=== PATIENT | female | born 2000 | race Caucasian/White ===

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

== ENCOUNTER 2021-04-09 06:18 | Emergency (ER) | payer OTHER, SELFPAY ==
[2021-04-09 06:20] VITALS: BP 166/75; PULSE 124; RESP 18; TEMP 36.1; O2SAT 100; BMI 54.1
--- NOTE | 2021-04-09 06:27 | EX.ED.DYSGE1 ---
HPI History of Present Illness Chief Complaint: Nausea/Vomiting Narrative Narrative: Patient presents after waking up. She felt something was in the back of her throat. She felt nauseous. Went to the bathroom and vomited once. She said it was darker in color than she would have expected. No bright red blood. History of reflux on pantoprazole. She is not noticed any blood in her stool. This concerned her. She has very mild nausea. No bad food exposures. No diarrhea. No abdominal pain. Current severity is mild. Work me to come to get checked out. [facility] Medical History GERD (gastroesophageal reflux disease) Home Medications biotin 5,000 mcg disintegrating tablet 10,000 mcg PO DAILY 11/06/20 [History Last Taken Unknown] norgestimate 0.25 mg-ethinyl estradiol 35 mcg tablet 1 tab PO DAILY tab 11/06/20 [History Last Taken Unknown] pantoprazole 40 mg tablet,delayed release 40 mg PO DAILY tab 11/06/20 [History Last Taken Unknown] spironolactone 100 mg tablet 100 mg PO DAILY tab 11/06/20 [History Last Taken Unknown] ondansetron HCl [Zofran] 4 mg PO Q8H #10 tab 04/09/21 [Rx Last Taken Unknown] Allergy/AdvReac Type Severity Reaction Status Date / Time amoxicillin Allergy unknown Verified 04/09/21 06:22 Family History Mother Breast cancer Surgical History History of tonsillectomy Social History Smoking Status: Current every day smoker Smokeless tobacco user: other second hand exposure: No alcohol intake: never what type of physical activity do you participate in: weight training frequency: 3-4 times per week duration: 60-90 minutes/day seatbelt use: always ROS ROS ED ROS Narrative ROS General: Denies fever, chills, sweats Eyes: Denies visual changes, blurred vision, double vision ENT: Denies ear pain, rhinorrhea, sore throat Cardiovascular: Denies chest pain, palpitations, heart racing Respiratory: Denies dyspnea, cough, sputum, dyspnea on exertion, orthopnea,PND GI: See HPI : Denies dysuria, hematuria, frequency Musculoskeletal: Denies myalgias, arthralgias, neck pain, back pain Skin: Denies rash, abscess, abrasions Neuro: Denies headache, weakness, paresthesia Psych: Denies depression, anxiety Endo: Denies polyuria, polydipsia, polyphagia Heme: Denies easy bruising, easy bleeding, lymphadenopathy Allergy: Denies hives, swelling EXAM Physical Exam Narrative Exam Narrative: Vital signs reviewed General: Well-nourished well-developed Head: Normocephalic atraumatic Eyes: Pupils equal round and reactive to light extraocular movements intact ENT: TMs clear no hemotympanum no trauma Neck: Nontender full range of motion Cardiovascular: Regular tachycardia with normal rhythm no murmurs normal S1-S2 Respiratory: No distress clear to auscultation bilaterally chest nontender Abdomen: Soft nontender nondistended normal bowel sounds no masses Back: Nontender no CVA tenderness Extremities: Nontender active range of motion ?4 extremities no trauma Skin: Normal color no trauma Neuro alert oriented cranial nerves II through XII intact normal strength sensation reflexes Const Vital Signs: 04/09/21 06:20 Temperature 97 F L Temperature Source Temporal Pulse Rate 124 H Respiratory Rate 18 Blood Pressure 166/75 H Blood Pressure Mean 105 Pulse Ox 100 Oxygen Delivery Method Room Air MDM MDM MDM Narrative Medical decision making narrative: Patient resting comfortably. Given IV fluids and Zofran. CBC obtained. Have a low suspicion for GI bleed. She is young healthy woman with no history of stomach ulcer or signs or symptoms of stomach ulcer. She is not noticed any blood in her stool. I suspect she had 1 dark emesis in color only. Hemoglobin unchanged from November at 10.3. Will be given Zofran for home we will follow-up as an outpatient Lab Data Labs: Laboratory Results - last 24 hr 04/09/21 06:25 WBC 8.0 RBC 4.78 Hgb 10.3 L Hct 35.4 L MCV 74.1 L MCH 21.5 L MCHC 29.1 L RDW Std Deviation 47.8 H RDW Coeff of Su 18.1 H Plt Count 374 MPV 10.8 Immature Gran % (Auto) 0.500 Neut % (Auto) 56.0 Lymph % (Auto) 34.1 [place] % (Auto) 6.5 Eos % (Auto) 2.4 Baso % (Auto) 0.5 Absolute Neuts (auto) 4.5 Absolute Lymphs (auto) 2.73 Nucleated RBC % 0 Discharge Plan Triage Chief Complaint: Nausea/Vomiting ED Provider: Iam Fraser Dx/Rx/DC Orders Clinical Impression: Vomiting Instructions: ED Vomiting (Adult) Prescriptions: New ondansetron HCl [Zofran] 4 mg tablet 4 mg PO Q8H Qty: 10 RF: 0 No Action spironolactone 100 mg tablet 100 mg PO DAILY RF: 0 pantoprazole 40 mg tablet,delayed release (DR/EC) 40 mg PO DAILY RF: 0 norgestimate-ethinyl estradiol 0.25-35 mg-mcg tablet 1 tab PO DAILY RF: 0 biotin 5,000 mcg tablet,disintegrating 10,000 mcg PO DAILY RF: 0 Referrals: [facility] Doctor,Out of [NON-STAFF] - Disposition Disposition: Home, self care
[2021-04-09 06:34] LABS: Absolute Lymphocyte Count 2.73 X10^3/uL (0.83-4.51); Absolute Neutrophil Count 4.5 X10^3/uL (2.0-7.7); Basophil# 0.04 X10^3/uL; Basophil% 0.5 % (0-1); Eosinophil# 0.19 X10^3/uL; Eosinophils% 2.4 % (0-5); Hematocrit 35.4 % (37-47); Hemoglobin 10.3 g/dL (12.0-15.0); Lymphocyte # 2.73 X10^3/ul (0.83-4.51); Lymphocyte % 34.1 % (19-41); Mean Corp Hgb Conc 29.1 g/dL (32-36); Mean Corpuscular Hgb 21.5 pg (27.0-32.0); Mean Corpuscular Volume 74.1 fL (81-99); Mean Platelet Vol. 10.8 fl (6.2-12.0); Monocyte# 0.52 X10^3/uL; Monocyte% 6.5 % (0-10); NRBC Flagged by Analyzer 0 % (0-5); Neutrophil # 4.49 X10^3/uL (2.7-7.7); Platelet Count 374 K/mm3 (150-450); RBC Distribution Width CV 18.1 % (11.6-14.6); RBC Distribution Width SD 47.8 fl (35.1-43.9); Red Blood Count 4.78 M/mm3 (4.2-5.4)
[2021-04-09] MEDS: 0.9% Normal Saline 1,000 ML 1000 ML IV (06:40)
[2021-04-09] MEDS: Ondansetron 4 MG/2 ML Vial IV (06:40)
[2021-04-09 07:11] VITALS: BP 128/69; PULSE 89; RESP 18
== END 2021-04-09 07:58 | disposition home or self-care (01) ==
LOC: ED 06:42
PROVIDERS: Emergency Provider Emergency Medicine
DX: R11.2 Nausea with vomiting, unspecified (principal); K21.9 Gastro-esophageal reflux disease without esophagitis; F17.200 Nicotine dependence, unspecified, uncomplicated; Z79.3 Long term (current) use of hormonal contraceptives; Z79.899 Other long term (current) drug therapy
CPT/HCPCS: 85025; 99284; J7030; A4216; J2405

== ENCOUNTER 2022-05-23 10:54 | Emergency (ER) | payer OTHER, SELFPAY ==
[2022-05-23 10:55] VITALS: BP 140/100; PULSE 90; RESP 18; TEMP 36.6; O2SAT 99; BMI 57.9
--- NOTE | 2022-05-23 11:11 | ED.VIS.GI ---
HPI HPI - GI History of Present Illness Chief Complaint: Abd Pain Detail of Chief Complaint: Lower abdominal pain Informant: patient and spouse/S.O. Abdominal Pain/Flank Pain Onset: Yesterday Context: Sudden Onset Timing: Continuous Quality: Aching Location: RLQ and LLQ Current Severity: Mild Maximum Severity: Moderate Worsened by: Nothing; Not Worsened By Food or Movement Relieved by: Nothing and - (Better if she is supine or her significant other rubs her abdomen) Nausea/Vomiting/Emesis GI Symptom: Positive for Nausea and Vomiting (X1) Onset: Yesterday Quality: Negative for Nonbilious, Blood streaks, Coffee ground or Hematemesis Diarrhea/Melena/Hematochezia Severity: Mild Associated Symptoms Associated Symptoms: Positive for - (Patient endorses decreased urine output); Negative for Dysuria, Frequency, Hematuria or Urgency LMP: Abnormal periods due to PCOS Narrative Narrative: Patient is a 22-year-old woman who was treated with metformin for PCOS. She had issues with the metformin and discontinued the metformin 1 to 2 years ago. She states she is now prediabetic and was started on metformin 3 weeks ago. Diarrhea started 2 weeks ago. She is reporting 3 watery stools per day. She has not noted blood or mucus. There is no individual or family history of ulcerative colitis, Crohn's disease or IBS. Patient has not had an endoscopy i.e. EGD or colonoscopy in the past 5 years. Patient localizes the pain to the right and left lower quadrant. There is no radiation. She denies anorexia. She denies fever or chills. She denies HEENT, cardiac, respiratory symptoms. She denies dysuria, frequency, urgency or hematuria. She does endorse decreased urine output. She denies rash, myalgias or arthralgias. Prior similar symptoms: No Recent Illness/Hospitalization: No PFSH PFS Medical History (Updated 05/23/22 @ 12:[address] Doc Rhoades MD) GERD (gastroesophageal reflux disease) PCOS (polycystic ovarian syndrome) Home Medications biotin 5,000 mcg disintegrating tablet 10,000 mcg PO DAILY 11/06/20 [History Last Taken Unknown] norgestimate 0.25 mg-ethinyl estradiol 35 mcg tablet 1 tab PO DAILY 11/06/20 [History Last Taken Unknown] pantoprazole 40 mg tablet,delayed release 40 mg PO DAILY 11/06/20 [History Last Taken Unknown] spironolactone 100 mg tablet 100 mg PO DAILY 11/06/20 [History Last Taken Unknown] ondansetron HCl 4 mg tablet (Zofran) 4 mg PO Q8H #10 tabs 04/09/21 [Rx Last Taken Unknown] Allergy/AdvReac Type Severity Reaction Status Date / Time amoxicillin Allergy unknown Verified 05/23/22 10:57 Family History Mother Breast cancer Surgical History History of tonsillectomy Social History (Updated 05/23/22 @ 11:[address] Doc Rhoades MD) household members: spouse Smoking Status: Current every day smoker tobacco type: e-cigarettes Smokeless tobacco user: other second hand exposure: No alcohol intake: never substance use type: does not use what type of physical activity do you participate in: weight training frequency: 3-4 times per week duration: 60-90 minutes/day seatbelt use: always ROS ROS ED Constitutional Constitutional ED: Denies chills, fever(s), subjective, sweats or weight loss ENT ENT ED: Reports other Details: Patient endorses dry mouth and thirst. ; Denies ear pain, rhinorrhea or sore throat Cardiovascular Cardiovascular: Denies chest pain, orthopnea, palpitations, paroxysmal nocturnal dyspnea or racing heartbeat Respiratory/Chest Respiratory/Chest: Denies cough, dyspnea, dyspnea on exertion, orthopnea or paroxysmal nocturnal dyspnea Gastrointestinal Gastrointestinal: Reports abdominal pain, diarrhea, nausea and vomiting; Denies constipation or melena Genitourinary Genitourinary ED: Denies dysuria, hematuria or urinary frequency Musculoskeletal Musculoskeletal: Denies arthralgias, back pain, myalgias or neck pain Integumentary Denies abscess or rash Neurologic Neurologic: Denies headache(s), paresthesias or weakness Psychiatric Psychiatric: Denies anxiety, depression or suicidal thoughts Endocrine Endocrinology: Denies polydipsia, polyphagia or polyuria Hematologic/Lymphatic Hematologic/Lymphatic: Denies easy bleeding, easy bruising or lymphadenopathy Allergic/Immunologic Allergic/Immunologic ED: Denies mouth swelling or tongue swelling EXAM Physical Exam Const Vital Signs: 05/23/22 10:55 05/23/22 11:35 Temperature 98 F Temperature Source Temporal Pulse Rate 90 74 Respiratory Rate 18 Blood Pressure 140/100 H 120/85 H Blood Pressure Mean 113 96 Pulse Ox 99 Oxygen Delivery Method Room Air Room Air Positive well nourished, well developed and obese; Negative for cachectic, contractures or unkempt Constitutional Narrative: Patient appears uncomfortable. Affect is flat. General Appearance ED: well developed; Negative for unkempt, cachectic, contractures, NAD or pallor Nutritional Appearance: obese; Negative for cachectic HEENT Reports dry mucous membranes HEENT Narrative: Ears normal. Nares patent. Uvula midline. There is no erythema or exudate. normocephalic and atraumatic Mouth ED: Yes dry mucous membranes Mouth: dry mucous membranes Eyes PERRL and EOMs intact bilaterally General Eye ED: Negative for pale conjunctiva or scleral icterus Resp normal respiratory effort and clear to auscultation bilaterally Cardio regular rate, regular rhythm, S1 normal heart sound, S2 normal heart sound and no murmurs GI non-tender, non-distended and no masses Back/Spine no CVA tenderness Neuro CN's II-XII intact bilaterally and moves all extremities Sensorium / Orientation: alert Psych Appearance: Negative for unkempt Skin no wounds General Skin Exam: Negative for jaundice or pallor Lesions: no lesions Rashes: no rashes MDM MDM MDM Narrative Medical decision making narrative: [place] patient is doing treated. Most like glee because for the diarrhea is the metformin. The metformin will cause most of her GI symptoms. Basic metabolic and was obtained to assess for hypokalemia, renal function. CBC to assess white count differential. Lab Data Attestation: I reviewed the patient's lab results. Lab results narrative: Patient has mild anemia with hemoglobin 10.7. White count differential normal. Patient metabolic panel is unremarkable. UA is negative with no ketones. Labs: Laboratory Results - last 24 hr 05/23/22 05/23/22 05/23/22 11:20 11:30 11:30 WBC 5.4 RBC 4.95 Hgb 10.7 L Hct 37.3 MCV 75.4 L MCH 21.6 L MCHC 28.7 L RDW Std Deviation 53.2 H RDW Coeff of Su 19.9 H Plt Count 301 MPV 11.2 Immature Gran % (Auto) 0.400 Neut % (Auto) 62.2 Lymph % (Auto) 30.2 [place] % (Auto) 4.6 Eos % (Auto) 1.9 Baso % (Auto) 0.7 Absolute Neuts (auto) 3.4 Absolute Lymphs (auto) 1.63 Nucleated RBC % 0 Sodium 140 Potassium 4.3 Chloride 110 H Carbon Dioxide 26.0 Anion Gap 4 L BUN 9 Creatinine 0.87 Estim Creat Clear Calc 99.47 Est GFR (MDRD) Af Amer 106 Est GFR (MDRD) Non-Af 87 BUN/Creatinine Ratio 10.3 Glucose 112 H Calcium 9.0 Urine Color Yellow Urine Clarity Clear Urine pH 6.0 Ur Specific [place] 1.020 Urine Protein Negative Urine Glucose (UA) Normal Urine Ketones Negative Urine Occult Blood Negative Urine Nitrite Negative Urine Bilirubin Negative Urine Urobilinogen Normal Ur Leukocyte Esterase Negative Urine RBC 0 SEEN Urine WBC 0 SEEN Ur Squamous Epith Cells 0-5 SEEN Urine Bacteria 0 SEEN Urine Mucus 0 SEEN Treatment and Re-Evaluation Narrative: Patient was reassessed at 1209 and informed that the cause of her symptoms in all likelihood is due to the metformin since the symptoms she is having are very common no adverse side effects. She was informed that normally it starts to improve after 2 weeks. She was informed that she could talk to her doctor and discontinue or see if it does improve since she had symptoms for 2 weeks. Discharge Plan Triage Chief Complaint: Abd Pain ED Provider: Doc Rhoades Dx/Rx/DC Orders Clinical Impression: Adverse drug reaction, Primary amenorrhea, Diarrhea, Abdominal discomfort, bilateral lower quadrant, History of polycystic ovarian syndrome Instructions: ED Drug Reaction, Other Prescriptions: No Action spironolactone 100 mg tablet 100 mg PO DAILY Label Comments: TAKE 1 TABLET BY MOUTH EVERY DAY pantoprazole 40 mg tablet,delayed release (DR/EC) 40 mg PO DAILY Label Comments: TAKE 1 TABLET ONCE DAILIY, ON AN EMPTY STOMACH. norgestimate-ethinyl estradiol 0.25-35 mg-mcg tablet 1 tab PO DAILY Label Comments: TAKE DIRECTED EVERY DAY biotin 5,000 mcg tablet,disintegrating 10,000 mcg PO DAILY ondansetron HCl [Zofran] 4 mg tablet 4 mg PO Q8H Qty: 10 0RF Primary Care Provider: Chhaya Graham NP Referrals: [facility],Out of [NON-STAFF] - 3-5 Days if not improving Disposition Disposition: Home, Self Care
[2022-05-23] MEDS: Dicyclomine 10 MG Capsule 20 MG PO (11:23)
[2022-05-23] MEDS: 0.9% Normal Saline 1,000 ML 1000 ML IV (11:33)
[2022-05-23 11:35] VITALS: BP 120/85; PULSE 74
[2022-05-23 11:36] LABS: Bacteria 0 SEEN /hpf (None Seen); Mucous, Urine 0 SEEN /hpf (<or=2+); Red Blood Cells-Urine 0 SEEN /hpf (0-5); White Blood Cells 0 SEEN /hpf (0-5)
[2022-05-23 11:37] LABS: Absolute Lymphocyte Count 1.63 X10^3/uL (0.83-4.51); Absolute Neutrophil Count 3.4 X10^3/uL (2.0-7.7); Basophil# 0.04 X10^3/uL; Basophil% 0.7 % (0-1); Eosinophils% 1.9 % (0-5); Hematocrit 37.3 % (37-47); Hemoglobin 10.7 g/dL (12.0-15.0); Lymphocyte # 1.63 X10^3/ul (0.83-4.51); Lymphocyte % 30.2 % (19-41); Mean Corp Hgb Conc 28.7 g/dL (32-36); Mean Corpuscular Hgb 21.6 pg (27.0-32.0); Mean Corpuscular Volume 75.4 fL (81-99); Mean Platelet Vol. 11.2 fl (6.2-12.0); Monocyte# 0.25 X10^3/uL; Monocyte% 4.6 % (0-10); NRBC Flagged by Analyzer 0 % (0-5); Neutrophil # 3.35 X10^3/uL (2.7-7.7); Neutrophil % 62.2 % (47-70); Platelet Count 301 K/mm3 (150-450); RBC Distribution Width CV 19.9 % (11.6-14.6); RBC Distribution Width SD 53.2 fl (35.1-43.9); Red Blood Count 4.95 M/mm3 (4.2-5.4); White Blood Count 5.4 K/mm3 (4.4-11.0)
[2022-05-23 11:38] LABS: Color, Urine Yellow (Yellow); Glucose, Dipstick Normal (Normal); Ketone-Dipstick Negative (Negative); Leukocyte Esterase-Dipstick Negative /ul (Negative); Nitrite-Dipstick Negative (Negative); Occult Blood-Urine Negative /ul (Negative); Protein-Dipstick Negative (Negative); Urine Bilirubin Dipstick Negative (Negative); Urine Clarity Clear (Clear); Urine Urobilinogen Normal (Normal)
[2022-05-23 11:46] LABS: Squamous Epithelial Cells - UA 0-5 SEEN /hpf (5-10)
[2022-05-23 11:51] LABS: Anion Gap 4 (5-15); BUN 9 mg/dL (7-18); BUN/Creat Ratio 10.3 RATIO (10-20); Chloride 110 mmol/L (98-107); Creatinine, Serum 0.87 mg/dL (0.55-1.02); EST Glomerular Filtration Rate 87 mL/min (>60); Est Glom Filt Rate - Afr Amer 106 mL/min (>60); Estimated Creatinine Clearance 99.47 ml/min; Glucose 112 mg/dL (74-106); Potassium 4.3 mmol/L (3.5-5.1); Sodium Level 140 mmol/L (136-145)
[2022-05-23 12:32] VITALS: BP 105/78; PULSE 79
== END 2022-05-23 12:36 | disposition home or self-care (01) ==
PROVIDERS: Emergency Provider Emergency Medicine; PCP Nurse Practitioner Family; Visit Provider Emergency Medicine
DX: T50.905A Adverse effect of unspecified drugs, medicaments and biological substances, initial encounter (principal); N91.0 Primary amenorrhea; R19.7 Diarrhea, unspecified; R10.31 Right lower quadrant pain; R10.32 Left lower quadrant pain; F17.290 Nicotine dependence, other tobacco product, uncomplicated; E66.9 Obesity, unspecified
CPT/HCPCS: 80048; 81001; 85025; 96360; 99285; A4216

== ENCOUNTER 2022-07-05 11:00 | Emergency (ER) | payer OTHER, SELFPAY ==
[2022-07-05 11:02] VITALS: BP 172/123; PULSE 130; RESP 20; TEMP 36.8; O2SAT 99; BMI 55.7
--- NOTE | 2022-07-05 11:14 | EDS_ITS ---
HPI HPI - GI History of Present Illness Chief Complaint: Abd Pain Informant: patient Abdominal Pain/Flank Pain Onset: Days (4) Context: Gradual Onset Timing: Continuous Quality: Aching, Cramping and Sharp Location: RUQ Worsened by: Food and - (deep breathing) Relieved by: Nothing Nausea/Vomiting/Emesis GI Symptom: Positive for Nausea and Vomiting Quality: Positive for Nonbilious; Negative for Blood streaks, Coffee ground or Hematemesis Diarrhea/Melena/Hematochezia GI Symptom: Negative for Diarrhea, Melena or Hematochezia Associated Symptoms Associated Symptoms: Positive for Frequency; Negative for Dysuria or Hematuria Narrative Narrative: Patient presents with abdominal pain that has been getting worse over the last 4 days. Patient states her pain is over the right upper quadrant and radiates around to her back. Patient describes it as aching, sharp, and cramping. Patient states it is worse after eating and with deep breathing. Patient states nothing seems to help with the pain. Patient admits to some nausea and vomiting. Patient admits to some constipation but denies any diarrhea, melena, or hematochezia. Patient admits to some urinary frequency but denies any dysuria or hematuria. Patient states her last menstrual period was approximately a year ago but states she has a history of PCOS and her periods are very irregular. Patient states she was recently started on control to help with her periods and PCOS. [facility] Medical History GERD (gastroesophageal reflux disease) PCOS (polycystic ovarian syndrome) Home Medications biotin 5,000 mcg disintegrating tablet 10,000 mcg PO DAILY 11/06/20 [History Last Taken Unknown] norgestimate 0.25 mg-ethinyl estradiol 35 mcg tablet 1 tab PO DAILY 11/06/20 [History Last Taken Unknown] pantoprazole 40 mg tablet,delayed release 40 mg PO DAILY 11/06/20 [History Last Taken Unknown] spironolactone 100 mg tablet 100 mg PO DAILY 11/06/20 [History Last Taken Unknown] ondansetron HCl 4 mg tablet (Zofran) 4 mg PO Q8H #10 tabs 04/09/21 [Rx Last Taken Unknown] famotidine 20 mg tablet 20 mg PO BID #28 TABLETS 07/05/22 [Rx Last Taken Unknown] Allergy/AdvReac Type Severity Reaction Status Date / Time amoxicillin Allergy unknown Verified 07/05/22 11:02 Family History Mother Breast cancer Surgical History History of tonsillectomy Social History household members: spouse Smoking Status: Current every day smoker tobacco type: e-cigarettes Smokeless tobacco user: other second hand exposure: No alcohol intake: never substance use type: does not use what type of physical activity do you participate in: weight training frequency: 3-4 times per week duration: 60-90 minutes/day seatbelt use: always ROS ROS ED Constitutional Constitutional ED: Denies chills or fever(s) Eyes Eyes: Denies blurry vision or change in vision ENT ENT ED: Denies rhinorrhea or sore throat Cardiovascular Cardiovascular: Denies chest pain or palpitations Respiratory/Chest Respiratory/Chest: Reports cough; Denies dyspnea Gastrointestinal Gastrointestinal: Reports abdominal pain, constipation, nausea and vomiting Genitourinary Genitourinary ED: Denies dysuria or hematuria Musculoskeletal Musculoskeletal: Reports back pain; Denies neck pain Integumentary Denies abscess or rash Neurologic Neurologic: Denies headache(s) or weakness Allergic/Immunologic Allergic/Immunologic ED: Denies mouth swelling or urticaria EXAM Physical Exam Const Vital Signs: 07/05/22 11:02 07/05/22 13:01 Temperature 98.2 F 98.9 F Temperature Source Temporal Temporal Pulse Rate 130 H 78 Respiratory Rate 20 H 16 Blood Pressure 172/123 H 126/86 H Blood Pressure Mean 139 99 Pulse Ox 99 98 Oxygen Delivery Method Room Air Room Air Positive well nourished, well developed and obese General Appearance ED: well developed and NAD Nutritional Appearance: obese HEENT Reports moist mucous membranes Neck supple and no JVD Resp normal respiratory effort and clear to auscultation bilaterally Cardio regular rate, regular rhythm and no murmurs GI normal to inspection, nondistended, normoactive bowel sounds Palpation: soft and tender RUQ; Negative for guarding or rebound tenderness present Extremity normal to inspection General Extremety ED: Negative for edema or tenderness General Extremity: Negative for edema Neuro oriented x3, CN's II-XII intact bilaterally and no sensory deficits noted Sensorium / Orientation: alert Motor Exam: strength 5/5 throughout Psych mental status grossly normal Skin no rashes or lesions noted MDM MDM MDM Narrative Medical decision making narrative: Patient was given IV fluids, morphine, and Zofran here. CBC was within normal limits. Comprehensive metabolic profile was within normal limits. Lipase was normal. Serum hCG was negative. Urinalysis does not show any evidence of urinary tract infection. Right upper quadrant ultrasound was obtained. There is no cholelithiasis or evidence of cholecystitis. There is fatty infiltration of the liver. This was interpreted by the radiologist and reviewed by myself. Patient was advised of her findings. Patient was given a prescription for Prilosec. Patient was instructed to start with a bland diet and advance as tolerated. Patient was instructed to follow-up with her primary care physician in 5 to 7 days. Patient understood and was agreeable with the plan. All questions were answered. Lab Data Attestation: I reviewed the patient's lab results. Labs: Laboratory Results - last 24 hr 07/05/22 07/05/22 07/05/22 11:55 11:55 11:55 WBC 6.9 RBC 4.89 Hgb 11.0 L Hct 37.2 MCV 76.1 L MCH 22.5 L MCHC 29.6 L RDW Std Deviation 51.7 H RDW Coeff of Su 18.8 H Plt Count 334 MPV 10.7 Immature Gran % (Auto) 0.400 Neut % (Auto) 65.7 Lymph % (Auto) 27.3 [place] % (Auto) 4.7 Eos % (Auto) 1.5 Baso % (Auto) 0.4 Absolute Neuts (auto) 4.5 Absolute Lymphs (auto) 1.87 Nucleated RBC % 0 Sodium 139 Potassium 4.3 Chloride 107 Carbon Dioxide 26.0 Anion Gap 6 BUN 9 Creatinine 0.86 Estim Creat Clear Calc 104.38 Est GFR (MDRD) Af Amer 106 Est GFR (MDRD) Non-Af 88 BUN/Creatinine Ratio 10.4 Glucose 110 H Calcium 9.2 Total Bilirubin 0.30 AST 10 L ALT 31 Alkaline Phosphatase 79 Total Protein 7.0 Albumin 3.3 Globulin 3.7 Albumin/Globulin Ratio 0.9 Lipase 53 L Serum , Qual NEGATIVE Urine Color Urine Clarity Urine pH Ur Specific [place] Urine Protein Urine Glucose (UA) Urine Ketones Urine Occult Blood Urine Nitrite Urine Bilirubin Urine Urobilinogen Ur Leukocyte Esterase Urine RBC Urine WBC Ur Squamous Epith Cells Urine Bacteria Urine Mucus 07/05/22 11:55 WBC RBC Hgb Hct MCV MCH MCHC RDW Std Deviation RDW Coeff of Su Plt Count MPV Immature Gran % (Auto) Neut % (Auto) Lymph % (Auto) [place] % (Auto) Eos % (Auto) Baso % (Auto) Absolute Neuts (auto) Absolute Lymphs (auto) Nucleated RBC % Sodium Potassium Chloride Carbon Dioxide Anion Gap BUN Creatinine Estim Creat Clear Calc Est GFR (MDRD) Af Amer Est GFR (MDRD) Non-Af BUN/Creatinine Ratio Glucose Calcium Total Bilirubin AST ALT Alkaline Phosphatase Total Protein Albumin Globulin Albumin/Globulin Ratio Lipase Serum , Qual Urine Color Yellow Urine Clarity Sl. Cloudy Urine pH 7.0 Ur Specific [place] 1.010 Urine Protein Negative Urine Glucose (UA) Normal Urine Ketones Negative Urine Occult Blood Negative Urine Nitrite Negative Urine Bilirubin Negative Urine Urobilinogen Normal Ur Leukocyte Esterase Negative Urine RBC 0 SEEN Urine WBC 0 SEEN Ur Squamous Epith Cells 0-5 SEEN Urine Bacteria RARE Urine Mucus 0 SEEN Radiography Diagnostic Testing: Clinical Impression(s) from Imaging Studies Gallbladder Ultrasound 07/05/22 11:18 IMPRESSION: Fatty infiltration of the liver. Electronically Signed: Martha Castañeda MD at 13:01 EDT , Discharge Plan Triage Chief Complaint: Abd Pain ED Provider: Roque Roman Dx/Rx/DC Orders Clinical Impression: Right upper quadrant abdominal pain, Morbid obesity with BMI of 50.0-59.9, adult Instructions: ED Abdominal Pain Unkn Cause Fem Prescriptions: New famotidine [famotidine] 20 mg tablet 20 mg PO BID Qty: 28 0RF No Action spironolactone 100 mg tablet 100 mg PO DAILY Label Comments: TAKE 1 TABLET BY MOUTH EVERY DAY pantoprazole 40 mg tablet,delayed release (DR/EC) 40 mg PO DAILY Label Comments: TAKE 1 TABLET ONCE DAILIY, ON AN EMPTY STOMACH. norgestimate-ethinyl estradiol 0.25-35 mg-mcg tablet 1 tab PO DAILY Label Comments: TAKE DIRECTED EVERY DAY biotin 5,000 mcg tablet,disintegrating 10,000 mcg PO DAILY ondansetron HCl [Zofran] 4 mg tablet 4 mg PO Q8H Qty: 10 0RF Primary Care Provider: Chhaya Graham NP Referrals: Chhaya Graham SHIPPING AND RECEIVING SPECIALIST, SHIPPING AND RECEIVING SPECIALIST-[facility] [Primary Care Provider] - 5-7 Days Disposition Disposition: Home, Self Care
--- NOTE | 2022-07-05 11:18 | US_ITS ---
STUDY: ABDOMINAL ULTRASOUND - RIGHT UPPER QUADRANT REASON FOR VISIT: Female, 22 years old PAIN TECHNIQUE: Ultrasound evaluation of the right upper quadrant was performed with real-time and static sosa-scale imaging. TECHNICAL QUALITY: Adequate. COMPARISON: CT dated 12/31/2018 FINDINGS: Liver: The liver measures 18.7 cm. There is increased echogenicity consistent with fatty infiltration. The bile ducts are within normal limits. There is hepatic color flow. The direction of portal flow is hepatopetal. There is no demonstrated mass lesion. Gallbladder: Normal distended gallbladder. The gallbladder wall measures 1.6 mm. There is a negative sonographic Del Toro''s sign. There is no pericholecystic fluid. There are no gallstones. Common Bile Duct (C.B.D.): The common bile duct measures 4.5 mm. Pancreas: Normal size of the head, body and tail of the pancreas. There is normal echogenicity of the pancreas. There is no demonstrated pancreatic mass or cyst. Right Kidney: Normal size of the right kidney. The right kidney measures 11.8 cm in length. Normal renal cortex. There is no demonstrated renal mass or cyst. There is no right hydronephrosis. US/Gallbladder IMPRESSION: Fatty infiltration of the liver. Electronically Signed: Martha Castañeda MD at 13:01 EDT ,
[2022-07-05] MEDS: Morphine 4 MG/ML Syringe IV (12:05)
[2022-07-05] MEDS: 0.9% Normal Saline 1,000 ML 1000 ML IV (12:05)
[2022-07-05] MEDS: Ondansetron 4 MG/2 ML Vial IV (12:05)
[2022-07-05 12:19] LABS: Mucous, Urine 0 SEEN /hpf (<or=2+); Red Blood Cells-Urine 0 SEEN /hpf (0-5); White Blood Cells 0 SEEN /hpf (0-5)
[2022-07-05 12:28] LABS: Color, Urine Yellow (Yellow); Glucose, Dipstick Normal (Normal); Ketone-Dipstick Negative (Negative); Leukocyte Esterase-Dipstick Negative /ul (Negative); Nitrite-Dipstick Negative (Negative); Occult Blood-Urine Negative /ul (Negative); Protein-Dipstick Negative (Negative); Urine Bilirubin Dipstick Negative (Negative); Urine Clarity Sl. Cloudy (Clear); Urine Urobilinogen Normal (Normal)
[2022-07-05 12:32] LABS: Internal QC Validated? YES +Cl - CLEAR BKGD; Pregnancy, Serum, hCG Quali. NEGATIVE Negative
[2022-07-05 12:35] LABS: Bacteria RARE /hpf (None Seen); Squamous Epithelial Cells - UA 0-5 SEEN /hpf (5-10)
[2022-07-05 12:43] LABS: ALB/GLOB Ratio 0.9 RATIO (0.9-2.4); AST(SGOT) 10 U/L (15-37); Absolute Lymphocyte Count 1.87 X10^3/uL (0.83-4.51); Absolute Neutrophil Count 4.5 X10^3/uL (2.0-7.7); Alanine Aminotransfer ALT/SGPT 31 U/L (13-56); Albumin, Serum 3.3 g/dL (3.2-5.0); Alkaline Phosphatase 79 U/L (45-117); Anion Gap 6 (5-15); BUN 9 mg/dL (7-18); BUN/Creat Ratio 10.4 RATIO (10-20); Basophil# 0.03 X10^3/uL; Basophil% 0.4 % (0-1); Calcium,Total 9.2 mg/dL (8.5-10.1); Chloride 107 mmol/L (98-107); Creatinine, Serum 0.86 mg/dL (0.55-1.02); EST Glomerular Filtration Rate 88 mL/min (>60); Eosinophils% 1.5 % (0-5); Est Glom Filt Rate - Afr Amer 106 mL/min (>60); Estimated Creatinine Clearance 104.38 ml/min; Globulin 3.7 g/dL (2.2-4.2); Glucose 110 mg/dL (74-106); Hematocrit 37.2 % (37-47); Lipase 53 U/L (73-393); Lymphocyte # 1.87 X10^3/ul (0.83-4.51); Lymphocyte % 27.3 % (19-41); Mean Corp Hgb Conc 29.6 g/dL (32-36); Mean Corpuscular Hgb 22.5 pg (27.0-32.0); Mean Corpuscular Volume 76.1 fL (81-99); Mean Platelet Vol. 10.7 fl (6.2-12.0); Monocyte# 0.32 X10^3/uL; Monocyte% 4.7 % (0-10); NRBC Flagged by Analyzer 0 % (0-5); Neutrophil # 4.51 X10^3/uL (2.7-7.7); Neutrophil % 65.7 % (47-70); Platelet Count 334 K/mm3 (150-450); Potassium 4.3 mmol/L (3.5-5.1); RBC Distribution Width CV 18.8 % (11.6-14.6); RBC Distribution Width SD 51.7 fl (35.1-43.9); Red Blood Count 4.89 M/mm3 (4.2-5.4); Sodium Level 139 mmol/L (136-145); White Blood Count 6.9 K/mm3 (4.4-11.0)
[2022-07-05 13:01] VITALS: BP 126/86; PULSE 78; RESP 16; TEMP 37.2; O2SAT 98
[2022-07-05 13:34] VITALS: BP 134/76; PULSE 89; RESP 18; TEMP 37.2; O2SAT 99
== END 2022-07-05 13:47 | disposition home or self-care (01) ==
PROVIDERS: Emergency Provider Emergency Medicine; PCP Nurse Practitioner Family; Visit Provider Emergency Medicine
DX: R10.11 Right upper quadrant pain (principal); E66.01 Morbid (severe) obesity due to excess calories; Z68.43 Body mass index [BMI] 50.0-59.9, adult; F17.290 Nicotine dependence, other tobacco product, uncomplicated
CPT/HCPCS: 76705; 80053; 81001; 83690; 84703; 85025; 96361; 96374; 96375; 99284; J2405

== ENCOUNTER 2022-10-06 10:47 | Emergency (ER) | payer OTHER, SELFPAY ==
[2022-10-06 10:48] VITALS: BP 164/101; PULSE 104; RESP 18; TEMP 36.2; O2SAT 97; BMI 56.5
[2022-10-06 10:59] VITALS: BP 159/94; PULSE 89; RESP 16; O2SAT 99
--- NOTE | 2022-10-06 10:59 | EKG12_ITS ---
Test Reason : CP Blood Pressure : / mmHG Vent. Rate : 098 BPM Atrial Rate : 098 BPM P-R Int : 154 ms QRS Dur : 084 ms QT Int : 346 ms P-R-T Axes : 042 047 029 degrees QTc Int : 441 ms Normal sinus rhythm Low voltage QRS Borderline ECG Confirmed by MITCH MOORE, DANNY ([id number]), electronic news gathering editor ANTON GIMENEZ ([id number]) on 10/08/2022 11:18:53 AM Referred By: BB Confirmed By:DANNY MEYER MD
--- NOTE | 2022-10-06 11:00 | EDS_ITS ---
HPI History of Present Illness Chief Complaint: Chest Pain Informant: patient Onset/Context/Timing Onset: Today (several hours) Activity at onset: - (started soon after woke up, gradually) Timing: Continuous Quality: Positive for Aching Location: Substernal (w/o radiation) Current Severity: Moderate Maximum Severity: Moderate Worsened By: Breathing Relieved By: Nothing Associated Symptoms: Positive for Nausea (chronic) and Acid Reflux (chronic); Negative for Vomiting, Diaphoresis, Dyspnea, Cough, Lightheadedness or Palpitations Narrative Narrative: Presenting with pleuritic substernal nonradiating chest discomfort. No recent illness, cough, dyspnea. No fevers or chills. No leg swelling or pain, no history of DVT or PE. No recent long travel, no hospitalization or surgery recently but she did have an EGD a month or 2 ago because she has a history of significant reflux, with nausea and occasional vomiting before meals, which is why they did the EGD. She also has history of anxiety and states that she recently discontinued her hydroxyzine because she was feeling lightheaded and went to urgent care and they suspected that was the reason she was feeling lightheaded. She admits she is feeling more anxious now as a result of the symptoms today. She states yesterday she was having diarrhea and some upper abdominal discomfort, her nausea is chronic, she has had no vomiting in the last 48 hours. She has no history of heart or lung problems, is 22 years old, vapes but does not smoke cigarettes, and is otherwise healthy. [facility] Medical History GERD (gastroesophageal reflux disease) PCOS (polycystic ovarian syndrome) Home Medications biotin 5,000 mcg disintegrating tablet 10,000 mcg PO DAILY 11/06/20 [History Last Taken Unknown] norgestimate 0.25 mg-ethinyl estradiol 35 mcg tablet 1 tab PO DAILY 11/06/20 [History Last Taken Unknown] pantoprazole 40 mg tablet,delayed release 40 mg PO DAILY 11/06/20 [History Last Taken Unknown] spironolactone 100 mg tablet 100 mg PO DAILY 11/06/20 [History Last Taken Unknown] ondansetron HCl 4 mg tablet (Zofran) 4 mg PO Q8H #10 tabs 04/09/21 [Rx Last Taken Unknown] famotidine 20 mg tablet 20 mg PO BID #28 TABLETS 07/05/22 [Rx Last Taken Unknown] azithromycin 250 mg tablet See Rx Instructions PO .COMPLEX #6 tabs 10/06/22 [Rx Last Taken Unknown] Allergy/AdvReac Type Severity Reaction Status Date / Time amoxicillin Allergy unknown Verified 10/06/22 10:47 Family History Mother Breast cancer Surgical History History of tonsillectomy Social History household members: spouse Smoking Status: Current every day smoker tobacco type: e-cigarettes Smokeless tobacco user: other second hand exposure: No alcohol intake: never substance use type: does not use what type of physical activity do you participate in: weight training frequency: 3-4 times per week duration: 60-90 minutes/day seatbelt use: always ROS ROS ED Constitutional Constitutional ED: Denies chills or fever(s) Eyes Eyes: Denies change in vision or diplopia ENT ENT ED: Denies rhinorrhea or sore throat Cardiovascular Cardiovascular: Reports chest pain; Denies leg edema or palpitations Respiratory/Chest Respiratory/Chest: Denies cough or dyspnea Gastrointestinal Gastrointestinal: Reports abdominal pain, diarrhea and nausea; Denies vomiting Genitourinary Genitourinary ED: Denies dysuria or hematuria Musculoskeletal Musculoskeletal: Denies back pain or neck pain Integumentary Denies abscess or rash Neurologic Neurologic: Denies headache(s), paresthesias or weakness Psychiatric Psychiatric: Denies anxiety or suicidal thoughts EXAM Physical Exam Const Vital Signs: 10/06/22 10:48 10/06/22 10:59 10/06/22 11:02 Temperature 97.1 F L Temperature Source Temporal Pulse Rate 104 H 89 Respiratory Rate 18 16 Respiratory Effort Normal Non-Labored Respiratory Depth Respiratory Pattern Blood Pressure 164/101 H 159/94 H Blood Pressure Mean 122 115 Pulse Ox 97 99 Oxygen Delivery Method Room Air Room Air 10/06/22 11:02 10/06/22 11:59 10/06/22 13:00 Temperature Temperature Source Pulse Rate 78 78 Respiratory Rate 18 16 Respiratory Effort Normal Non-Labored Respiratory Depth Normal Respiratory Pattern Normal Blood Pressure 155/78 H 140/78 H Blood Pressure Mean 103 98 Pulse Ox 98 98 Oxygen Delivery Method Room Air Room Air Room Air 10/06/22 14:00 Temperature 98.7 F Temperature Source Temporal Pulse Rate 88 Respiratory Rate 16 Respiratory Effort Respiratory Depth Respiratory Pattern Blood Pressure 129/78 H Blood Pressure Mean 95 Pulse Ox 98 Oxygen Delivery Method Room Air Positive well nourished, well developed and obese General Appearance ED: well developed and NAD Nutritional Appearance: obese HEENT Reports moist mucous membranes normocephalic and atraumatic Eyes PERRL and EOMs intact bilaterally Neck full ROM, no lymphadenopathy, supple and no JVD Resp normal respiratory effort and clear to auscultation bilaterally Cardio regular rate, regular rhythm and no murmurs Rate: other Other Details: mild tachycardia GI non-tender and non-distended Auscultation: normoactive bowel sounds Palpation: soft Back/Spine no CVA tenderness General Back: other FROM Extremity normal to inspection and no calf tenderness General Extremety ED: Negative for edema, pulses abnormal or tenderness General Extremity: Negative for edema or pulses abnormal Neuro oriented x3, CN's II-XII intact bilaterally and no sensory deficits noted Sensorium / Orientation: awake and alert Motor Exam: strength 5/5 throughout Psych Mood & Affect: anxious Skin no rashes or lesions noted and no wounds MDM MDM MDM Narrative Medical decision making narrative: EKG and two-view chest x-ray my interpretation both normal. Given her mild tachycardia, the PERC rule does not apply so I sent off for a troponin which is normal and a D-dimer which is elevated at 0.58. Therefore she was sent for CT angiography of the chest, using the renal function from a couple months ago which was normal. Results are noted below, possible pneumonia/pneumonitis. Given all that, reinterviewed the patient she states she has had a minimal cough lately but does not feel like she has a cold or pneumonia. We sent a COVID swab it is negative. Therefore I will treat the patient empirically with a Z-Edu and advised she follow-up closely with her primary care doctor which she is comfortable doing. She did have improvement of her chest symptoms with a GI cocktail suggesting this could be upper GI in etiology. Lab Data Attestation: I reviewed the patient's lab results. Labs: Laboratory Results - last 24 hr 10/06/22 10/06/22 11:25 11:25 D-Dimer Quant (PE/DVT) 0.58 H* Troponin I High Sens 4 Radiography Diagnostic Testing: Clinical Impression(s) from Imaging Studies Chest X-Ray 10/06/22 11:40 IMPRESSION: No acute cardiopulmonary process identified. Electronically Signed: Janet Arana MD at 11:56 EST Reading Location ID and State: [facility] / [place] Tel , Service support , Chest CTA 10/06/22 11:52 IMPRESSION: No evidence of pulmonary embolism with limited evaluation of the more distal pulmonary artery branches due to motion artifact and suboptimal contrast bolus. Mild bilateral pneumonia or pneumonitis with groundglass opacities. Hepatic steatosis. Electronically Signed: Janet Arana MD at 12:54 EST Reading Location ID and State: [facility] / [place] Tel , Service support , Rhythm Strip Rhythm Strip: Sinus Rhythm Rate: 103 Ectopy: None EKG Initial EKG: Attestation: I personally reviewed and interpreted this EKG as follows: Interpretation: Sinus Rhythm and No Acute Injury Pattern Comments: normal EKG Discharge Plan Triage Chief Complaint: Chest Pain Other Complaint: Shortness of Breath ED Provider: Lukas Roche Dx/Rx/DC Orders Clinical Impression: Pneumonitis, Chest discomfort Instructions: Chest and Lung Problems Prescriptions: New azithromycin 250 mg tablet See Rx Instructions .ROUTE .COMPLEX Qty: 6 0RF Rx Instructions: For 250 mg dose pack: take 500 mg today (day 1), then 250 mg for 4 days (days 2-5) No Action spironolactone 100 mg tablet 100 mg PO DAILY Label Comments: TAKE 1 TABLET BY MOUTH EVERY DAY pantoprazole 40 mg tablet,delayed release (DR/EC) 40 mg PO DAILY Label Comments: TAKE 1 TABLET ONCE DAILIY, ON AN EMPTY STOMACH. norgestimate-ethinyl estradiol 0.25-35 mg-mcg tablet 1 tab PO DAILY Label Comments: TAKE DIRECTED EVERY DAY biotin 5,000 mcg tablet,disintegrating 10,000 mcg PO DAILY ondansetron HCl [Zofran] 4 mg tablet 4 mg PO Q8H Qty: 10 0RF famotidine [famotidine] 20 mg tablet 20 mg PO BID Qty: 28 0RF Primary Care Provider: Chhaya Graham NP Referrals: Chhaya Graham [employer], [facility] [Primary Care Provider] - 3-5 Days Disposition Disposition: Home, Self Care
[2022-10-06] MEDS: Mag Hydrox/Al Hydrox/Simeth 30 ML UDC PO (11:12)
--- NOTE | 2022-10-06 11:40 | RAD_ITS ---
HISTORY: chest pain. TECHNIQUE: XR Chest 2 Views. COMPARISON: None. FINDINGS: CARDIOMEDIASTINAL BORDERS: Cardiac silhouette within normal limits in size. Mediastinal contour unremarkable. LUNGS: Radiographically clear. PLEURA: No pleural effusion or pneumothorax seen. OSSEOUS STRUCTURES: Unremarkable. RAD/Chest PA and Lateral IMPRESSION: No acute cardiopulmonary process identified. Electronically Signed: Janet Arana MD at 11:56 EST ,
[2022-10-06 11:50] LABS: D-Dimer Quantitative (DVT/PE) 0.58 FEU/ug/m (0.27-0.49); Troponin-I HS 4 pg/mL (3.0-54.0)
--- NOTE | 2022-10-06 11:52 | CT_ITS ---
HISTORY: pleuritic chest pain, elevated d-dimer. TECHNIQUE: CT angiogram of the chest was performed after the intravenous administration of 100 mL Isovue-370. Post-processing of the angiographic images was performed with multiplanar reformation and 3D reconstruction. Individualized dose optimization techniques were used for this CT. 1433 images. COMPARISON: XR same day. FINDINGS: CENTRAL AIRWAYS: Patent. LUNGS: Mild groundglass opacities in the left upper lobe, lingula, and bilateral lower lobes. PLEURA: No pneumothorax or significant pleural effusion. HEART/PERICARDIUM: Heart within normal limits in size. No pericardial effusion. PULMONARY ARTERIES: No filling defect seen with limited evaluation of the more distal branches due to motion artifact and suboptimal contrast bolus. AORTA/VESSELS: No thoracic aortic aneurysm or dissection flap. MEDIASTINUM/MELISSA: No pathologically enlarged lymph nodes. Residual thymus noted. OSSEOUS STRUCTURES: Intact. UPPER ABDOMEN: Fatty infiltration of the liver. CT/CTA Chest W/WO Contrast IMPRESSION: No evidence of pulmonary embolism with limited evaluation of the more distal pulmonary artery branches due to motion artifact and suboptimal contrast bolus. Mild bilateral pneumonia or pneumonitis with groundglass opacities. Hepatic steatosis. Electronically Signed: Janet Arana MD at 12:54 EST ,
[2022-10-06 11:59] VITALS: BP 155/78; PULSE 78; RESP 18; O2SAT 98
[2022-10-06 13:00] VITALS: BP 140/78; PULSE 78; RESP 16; O2SAT 98
[2022-10-06 14:00] VITALS: BP 129/78; PULSE 88; RESP 16; TEMP 37.1; O2SAT 98
[2022-10-06 14:42] VITALS: BP 134/78; PULSE 78; RESP 16; TEMP 36.6; O2SAT 99
== END 2022-10-06 14:47 | disposition home or self-care (01) ==
PROVIDERS: Emergency Provider Emergency Medicine; PCP Nurse Practitioner Family; Visit Provider Emergency Medicine
DX: J18.9 Pneumonia, unspecified organism (principal); R07.89 Other chest pain; F17.290 Nicotine dependence, other tobacco product, uncomplicated
CPT/HCPCS: 71046; 71275; 84484; 85379; 87811; 93005; 99284; J7030; J7040; Q9967; A4216